=== PATIENT | male | born 1960 | race Caucasian/White ===

== ENCOUNTER 2025-08-19 14:33 | Emergency (ER) | payer BC, SELFPAY ==
[2025-08-19] VITALS (7 sets, daily range): BP systolic 145–165; BP diastolic 84–102; PULSE 71–92; RESP 12–23; TEMP 36.3–36.9; O2SAT 96–98; BMI 27.6
--- NOTE | 2025-08-19 14:39 | EKG_ITS ---
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
--- NOTE | 2025-08-19 15:45 | XR_ITS ---
EXAMINATION: PA chest single view TECHNIQUE: Upright PA chest single view Date and time: August 19, 2025, 1619 hours, comparison February 14, 2013 INDICATIONS: Shortness of breath left-sided chest pain today. FINDINGS: Normal heart size Lungs are clear. Osseous structures are intact IMPRESSION: No active disease
[2025-08-19] MEDS: KETOROLAC INJ 30 MG/ML VIAL IM (16:13)
[2025-08-19 16:28] LABS: Basophils # (Auto) 0.1 Thou/mm3 (0.0-0.2); Basophils % (Auto) 1 % (0-2.5); Eosinophils # (Auto) 0.1 Thou/mm3 (0.0-0.5); Eosinophils % (Auto) 1 % (0-10); Hematocrit 47.6 % (41.0-53.0); Hemoglobin 16.6 g/dL (13.5-16.0); Immature Granulocytes Auto 0.03 Thou/mm3 (0.00-0.00); Lymphocytes # (Auto) 2.8 Thou/mm3 (1.0-4.8); Lymphocytes % (Auto) 28 % (10-50); Mean Corpuscular HGB Conc 34.9 g/dl (31.0-37.0); Mean Corpuscular Hemoglobin 30.5 pg (25.0-35.0); Mean Corpuscular Volume 88 fL (80-100); Monocytes # (Auto) 0.8 Thou/mm3 (0.0-0.8); Monocytes % (Auto) 8 % (0-12); Neutrophils # (Auto) 6.1 Thou/mm3 (1.8-7.7); Neutrophils % (Auto) 61 % (37-80); Nucleated Red Blood Cell # 0.00 Thou/mm3 (0.00-0.00); Nucleated Red Blood Cell % 0 /100 WBC (0); Platelet Count 195 Thou/mm3 (140-440); RDW Standard Deviation 39.5 fL (35.1-43.9); Red Blood Count 5.44 Miln/mm3 (4.50-5.90); White Blood Count 9.9 Thou/mm3 (3.8-10.6)
[2025-08-19 16:49] LABS: Alanine Aminotransferase 317 U/L (10-49); Albumin, Serum 4.6 gm/dL (3.4-4.8); Albumin/Globulin Ratio 1.8 (1.2-2.2); Alkaline Phosphatase 96 U/L (46-116); Anion Gap 12 (7-16); Aspartate Amino Transferase 210 U/L (0-34); BUN/Creatinine Ratio 5 Ratio (12-20); Bilirubin,Total 0.6 mg/dL (0.3-1.2); Blood Urea Nitrogen 9 mg/dL (9-23); Calcium 9.3 mg/dL (8.3-10.6); Calcium (Corrected) 9.3 mg/dL (8.5-10.1); Carbon Dioxide 26.1 mMol/L (20.0-31.0); Chloride 105 mMol/L (98-107); Creatinine (Component) 1.8 mg/dL (0.6-1.3); Estimated Creatinine Clearance 41.2 mL/min (>60); Globulin 2.6 gm/dL (2.3-3.5); Glucose 114 mg/dL (74-106); Osmolality,Calculated 284 (275-295); Potassium 4.3 mMol/L (3.4-5.1); Sodium 143 mMol/L (136-145); Total Protein 7.2 gm/dL (5.7-8.2); Troponin I < 0.020 ng/mL (0.0-0.045); eGFR 42 See Note
--- NOTE | 2025-08-19 20:48 | EDNOTE_ITS ---
ED SOB =RME/HPI General Chief Complaint: Shortness of Breath/Dyspnea Stated Complaint: SOB, HTN and chest pain Time Seen by Provider: 08/19/25 14:48 Source: patient Arrival date/time: 08/19/25 14:33 Mode of arrival: ambulatory Limitations: no limitations RME / HPI RME / HPI Narrative: This patient is a pleasant 65-year-old male who arrives to the ED today with com plaints of shortness of breath with intermittent dizziness events off and on for the past few days. Additional complaints of lower back pain concerns appear to be chronic patient states she has had them for quite some time. At time of arrival, patient was hypertensive. Patient did not appear to be in any level of respiratory distress and was satting at 96% on room air. Patient was hypertensive on arrival. Related Data Previous Rx's ?Medication ?Instructions ?Recorded clonidine HCl 0.2 mg tablet 0.2 mg PO Q12H PRN hyperte nsive 08/19/25 emergency #10 tabs meclizine 25 mg tablet 25 mg PO BID PRN dizziness # 10 tabs 08/19/25 Allergies Allergy/AdvReac Type Severity Reaction Status Date / Time No Known Allergies Allergy Verified 08/19/25 14:39 Review of Systems Review of Systems Systems Reviewed: All systems reviewed, normal except as documented Past Medical History Past Medical History CARDIAC: Negative Congestive Heart Failure RESPIRATORY: Negative Chronic Obstructive Pulmonary Disease (COPD) GENITOURINARY: Negative Renal Disease ENDOCRINE: Negative Diabetes Mellitus Type 1 or Diabetes Mellitus Type 2 Social History SMOKING STATUS: Former smoker ED Exam General Limitations: Present no limitations General appearance: Present alert, in no apparent distress and in distress Head Head exam: Present atraumatic and other (Unremarkable cranial valuation. No signs of trauma. No skull depressions or deformities.) Eye Eye exam: Present normal appearance, PERRL and EOMI ENT ENT exam: Present normal exam, normal oropharynx and mucous membranes moist Neck Neck exam: Present normal inspection, full ROM and trachea midline Chest Chest inspection: Present normal inspection and symmetric chest wall rise Respiratory Respiratory exam: Present normal lung sounds bilaterally Cardiovascular Cardiovascular exam: Present regular rate, normal rhythm and normal heart sounds Abdominal Exam Abdominal exam: Present soft and normal bowel sounds Extremities Exam Extremities exam: Present normal inspection and full ROM Back Exam Back exam: Present other (Patient displays diffuse tenderness to palpation throughout the lower thoracic and lumbar region. No definitive CVA tenderness. No signs of trauma. No step-offs noted. Patient denies any saddle paresthesia. Bilateral distal neurovascular intact.) Neurological Exam Neurological exam: Present alert, oriented X3 and CN II-XII intact Psychiatric Psychiatric exam: Present normal affect and normal mood Skin Skin exam: Present warm, dry, intact and normal color Course Quality Measures none Orders Category Date Time Status EKG (ED ONLY) *Do not use* NOW Care 08/19/25 14:39 Completed IV [Insert IV] NOW Care 08/19/25 20:53 Active EKG (ED Only) Stat Exams 08/19/25 14:39 Draft US abdomen limited Stat Exams 08/19/25 21:03 Completed XR chest 1V portable Stat Exams 08/19/25 15:45 Completed CBC Stat Lab 08/19/25 16:05 Completed CMP [Comprehensive Metabolic Panel] Stat Lab 08/19/25 16:05 Completed Troponin I Stat Lab 08/19/25 16:05 Completed Ketorolac Inj [Toradol Inj] Med 08/19/25 15:45 Discontinued 30 mg IM X1 ONE Sodium Chloride 0.9% 1000 ml [Ns] 1,000 ml Med 08/19/25 20:52 Discontinued IV 999 mls/hr cloNIDine HCL [Catapres] Med 08/19/25 20:46 Discontinued 0.2 mg PO X1 ONE Vital Signs Vital signs: Vital Signs Temperature 98.1 F 08/19/25 14:55 Pulse Rate 92 08/19/25 14:55 Respiratory Rate 18 08/19/25 14:55 Blood Pressure 165/84 H 08/19/25 14:55 Pulse Oximetry (%) 96 08/19/25 14:55 Oxygen Delivery Method Room Air 08/19/25 14:55 Shortness of Breath / Dyspnea MDM Narrative MDM Narrative:: All studies performed the ED were evaluated by me personally. Serum studies were concerning for a transaminitis state as well as some possible new onset kidney concerns. Discussed the case with Dr. Julien. We agreed to hydrate the patient to see if there was improvement of his patient reports creatinine concerns as well as ultrasound of the right upper quadrant to assess liver concerns. Ultrasound confirmed a hepatic steatosis and patient's received hydration prior to discharge. Patient has outpatient follow-up with our clinic and therefore, patient is minimized to continue follow-up with outpatient clinic for discussions related to today's visit. Patient data External records reviewed:: [facility] previous records Clinical information provided by:: patient Social determinants that could affect healthcare access:: none Patient has the following chronic illnesses:: Back pain, fatty liver, hypertension How is presenting disease/condition affected by chronic disease/condition?: exacerbated by Evaluation data The following diagnostics were reviewed and interpreted by me:: other (specify) (None) Lab and/or radiology exams considered but not ordered:: None Interpretation Summary: Mild acute renal injury social alcohol Medications / Prescriptions Medications or Prescriptions considered but not ordered:: None Medication administrations:: Medication Administration History Discontinued Medications Clonidine (Clonidine Hcl 0.1 Mg Tablet) 0.2 mg PO X1 ONE Stop: 08/19/25 20:47 Last Admin: 08/19/25 21:20 Dose: 0.2 mg Documented By: GURPREET Sodium Chloride (Ns) 1,000 mls @ 999 mls/hr IV .Q1H1M ONE Stop: 08/19/25 21:52 Last Admin: 08/19/25 21:20 Dose: 999 mls/hr Documented By: GURPREET Ketorolac Tromethamine (Ketorolac Inj 30 Mg/Ml Vial) 30 mg IM X1 ONE Stop: 08/19/25 15:46 Last Admin: 08/19/25 16:13 Dose: 30 mg Documented By: As noted above Consultations Consultation(s) initiated? (list below): No Diagnosis Shortness of Breath Differential Diagnosis: other (Pneumonia, viral upper respiratory illness, COPD exacerbation, sepsis, electrolyte abnormality, acute renal injury, chronic kidney concerns) Most likely diagnosis given after review of the tests above:: Hypertension, renal injury, fatty liver Admission Indicated Admission indicated?: not indicated Explain why admission is indicated or not indicated:: Unwarranted Admission Request Was there a request for admission?: No Disposition Plan Disposition Plan: Discharge Discharge Attestation Discharge Attestation: The patient and all family members were given an opportunity to ask questions and understood the discharge instructions. Discharge instructions specifically effects, indications for sooner follow up or return to the emergency department, and the expected course of current diagnosis. Patient condition: Stable Discharge Plan Plan Patient Disposition: HOME (Self Care) Prescriptions/Referrals Prescriptions/Med Rec: New clonidine HCl 0.2 mg tablet 0.2 mg PO Q12H PRN (Reason: hypertensive emergency) Qty: 10 0RF Rx Instructions: To be used if systolic blood pressure is above 160 or diastolic pressure is above 90 meclizine 25 mg tablet 25 mg PO BID PRN (Reason: dizziness) Qty: 10 0RF Referrals: Bill Jack MD [Primary Care Provider, [facility]] - In 1 week Problem List Clinical Impression: Viral upper respiratory illness, Acute kidney injury, Hypertension Patient/Caregiver Discharge Instructions Education Materials: Controlling High Blood Pressure, ED URI, Viral, No Abx (Adult) Additional Instructions: Patient is been advised to follow-up with his primary care provider at the clinic this related to this facility for continued evaluation and management. Print Language: French Stand Alone Forms: [employer] Award Info., Patient Portal Info Letter
--- NOTE | 2025-08-19 21:03 | XR_ITS ---
Examination: Abdomen sonogram, Limited Date and time of exam: August 19, 2025, 2121 hours INDICATIONS: Chest pain shortness of breath today epigastric pain today Technique: Real-time shaver scale transabdominal sonographic images of the upper abdomen obtained. Findings: Multiple gallstones Normal gallbladder wall 0.3 cm Common bile duct 0.6 cm no stones Pancreas obscured by bowel gas Liver 18.4 cm fatty infiltration Normal hepatopetal portal venous flow Patent IVC IMPRESSION: Cholelithiasis, negative for cholecystitis
[2025-08-19] MEDS: SODIUM CHLORIDE 0.9% 1000 ML 1,000 ML 999 ML IV (21:20)
== END 2025-08-19 22:59 | disposition home or self-care (01) ==
PROVIDERS: Physician Assistant; Emergency Provider Family Medicine; PCP Family Medicine
DX: J06.9 Acute upper respiratory infection, unspecified (principal); N17.9 Acute kidney failure, unspecified; I10 Essential (primary) hypertension; K76.0 Fatty (change of) liver, not elsewhere classified; M54.50 Low back pain, unspecified
CPT/HCPCS: 36415; 71045; 76705; 80053; 84484; 85025; 93005; 96372; 99284; J1885; J7030; A9270